=== PATIENT | male | born 1935 | race Caucasian/White ===

== ENCOUNTER 2017-05-04 19:21 | Emergency (ER) | payer OTHER, BC ==
[2017-05-04 19:30] VITALS: BP 193/110; TEMP 98.6
--- NOTE | 2017-05-04 20:02 | EDPHY ---
H & P Time Seen by Provider: 05/04/17 19:32 HPI/ROS: Chief complaint. Difficulty urinating HPI. 82-year-old male presents with difficulty urinating beginning this afternoon. Decreased urination. He feels like there is more to come. He then had spasms in his bladder and dribbling. He noted blood in his urine 2 weeks ago. He did not get it checked out after 4 days the urine cleared. No fever. He had similar symptoms 2 months prior to arrival. He also has a history of bladder polyps. No other complaints ROS Constitutional. no fever/chills, no weakness Eyes. no problems with vision ENT. no sore throat, no nasal drainage Cardiovascular. no chest pain Respiratory. no shortness of breath, no cough Abdominal. Full bladder sensation . Decreased ability to urinate. MS. no calf pain/swelling, no neck/back pain, no joint pain Skin. no rash Lymph. no swollen glands Neuro. no headache, no dizziness, no difficulty walking or with speech Past Medical/Surgical History: Bladder polyps, Social History: , nonsmoker, no alcohol Smoking Status: Former smoker Physical Exam: General Appearance: Alert well-developed male moderate distress vital signs show heart rate 114 an initial blood pressure 193/110 Eyes: Pupils equal and round no pallor or injection. ENT, Mouth: Mucous membranes are moist. Respiratory: There are no retractions, lungs are clear to auscultation. Cardiovascular: Regular rate and rhythm. Gastrointestinal: Suprapubic fullness and tenderness and patient says makes him feel like he needs to urinate when I palpate. Neurological: Awake and alert, sensory and motor exams grossly normal. Skin: Warm and dry, no rashes. Musculoskeletal: Neck is supple nontender. Extremities symmetrical, full range of motion. Psychiatric: Patient is oriented X 3, there is no agitation. Constitutional: Initial Vital Signs Temperature (C) 37.0 C 05/04/17 19:27 Heart Rate 114 H 05/04/17 19:27 Respiratory Rate 20 05/04/17 19:27 Blood Pressure 193/110 H 05/04/17 19:27 O2 Sat (%) 96 05/04/17 19:27 O2 Delivery Mode Room Air Allergies/Adverse Reactions: No Known Allergies Allergy (Verified 05/04/17 19:27) Home Medications: Medication Instructions Recorded Cephalexin [Keflex (*)] 500 mg PO TID #21 cap 05/04/17 Phenazopyridine HCl [Pyridium] 200 mg PO TID #6 tab 05/04/17 Medical Decision Making Procedures: Peridium And cephalexin in the emergency department. Urine is sent for culture and sensitivity ED Course/Re-evaluation: On serial evaluations Patient remained stable. He is able to void apparently completely. Residual bladder scan shows minimal residual urine. Patient has urinary tract infection and he and I discussed treatment plan including criteria for return importance of follow-up and further evaluation. He expresses understanding and agreement Differential Diagnosis: Had hematuria about a week or 10 days ago. He now has bladder spasms. Urinalysis indicates infection. He does not have evidence for sepsis. - Data Points Microbiology Results: MICROBIOLOGY 05/04/17 20:11 Urine,Clean Catch Urine Culture - Preliminary Two [place] Types Medications Given: Discontinued Medications Cephalexin (Keflex 500 Mg Prepack#4) 1 btl TAKEHOME EDNOW ONE PRN Reason: Protocol Stop: 05/04/17 21:10 Last Admin: 05/04/17 21:16 Dose: 1 btl Phenazopyridine HCl (Pyridium) 200 mg PO EDNOW ONE Stop: 05/04/17 21:12 Last Admin: 05/04/17 21:16 Dose: 200 mg Departure - Departure Disposition: Home, Routine, Self-Care Clinical Impression: Urinary tract infection Condition: Good Instructions: Cephalexin (By mouth), Phenazopyridine (By mouth) Additional Instructions: Drink plenty of fluids and stay hydrated. Cephalexin as antibiotic using 1 pill 3 times a day. Peridium to help with bladder spasm. Return for worsening pain, fever, vomiting. Recheck with Dr. Lozada in 2 days without fail. I will also give you the name of 2 other urologists. Referrals: Randy Lozada MD [Primary Care Provider] - 1-2 days without fail Luca Reynoso MD [Medical Doctor] - As per Instructions Elieser Reynolds MD [Medical Doctor] - As per Instructions Prescriptions: Cephalexin [Keflex (*)] 500 mg PO TID #21 cap Phenazopyridine HCl [Pyridium] 200 mg PO TID #6 tab
[2017-05-04] MEDS ORDERED: CEPHALEXIN 500MG PREPACK#4 BTL TAKEHOME ONE (21:09)
[2017-05-04] MEDS ORDERED: PHENAZOPYRIDINE HCL 200 MG TAB PO ONE (21:11)
[2017-05-04 21:57] VITALS: PULSE 112; RESP 18; O2SAT 95
== END 2017-05-04 21:58 | disposition home or self-care (01) ==
DX: N39.0 Urinary tract infection, site not specified (principal); B96.89 Other specified bacterial agents as the cause of diseases classified elsewhere; Z87.891 Personal history of nicotine dependence

== ENCOUNTER 2017-05-15 08:42 | Observation (INO) | payer OTHER ==
[2017-05-15] MEDS ORDERED: VANCOMYCIN PHARMACY TO DOSE MISC ONE (09:17)
--- NOTE | 2017-05-15 09:17 | PDHPUP ---
History & Physical Update H&P update statement: This history and physical update is based on an assessment of the patient which was completed after admission or registration (within 24 hours), but prior to the surgery/procedure. H&P update: H&P reviewed & patient examined, no change in patient's condition since H&P completed
[2017-05-15] MEDS ORDERED: LR 1,000 ML IV ONE (09:40)
[2017-05-15] MEDS ORDERED: VANCOMYCIN 1.5 GM in NS 250 ML IV ONE (10:00)
[2017-05-15] MEDS ORDERED: ALBUTEROL 3 ML DEYVIAL ONE (10:23)
[2017-05-15] MEDS ORDERED: MIDAZOLAM 2 MG/2 ML VIAL ONE ×2 (10:23→10:47)
[2017-05-15] MEDS ORDERED: ALBUMIN 5% 250 ML BOTTLE IV ONE (10:35)
[2017-05-15] MEDS ORDERED: LIDOCAINE 2% JELLY 20 ML (UROJECT) ONE (10:50)
[2017-05-15] MEDS ORDERED: fentaNYL 100 MCG/2 ML INJ IVP PRN (10:59)
[2017-05-15] MEDS ORDERED: ONDANSETRON 4 MG/2 ML VIAL IVP PRN ×2 (10:59→11:49)
[2017-05-15] MEDS ORDERED: LR 500 ML IV PRN (10:59)
[2017-05-15] MEDS ORDERED: NALOXONE HCL 0.4 MG/ML INJ IVP PRN (10:59)
[2017-05-15] MEDS ORDERED: ALBUTEROL 3 ML DEYVIAL IH PRN (10:59)
--- NOTE | 2017-05-15 10:59 | PDANEPAE ---
ANE Past Medical History - Cardiovascular History Hx Hypertension: No Hx Arrhythmias: No Hx Chest Pain: No Hx Coronary Artery / Peripheral Vascular Disease: Yes Hx CHF / Valvular Disease: No Hx Palpitations: No Cardiovascular History Comment: STENTS PLACED APPROX 1999. EDEMA LOWER EXTREMETIES. HYPERCHOLESTEROLEMIA - Pulmonary History Hx COPD: No Hx Asthma/Reactive Airway Disease: Yes Hx Recent Upper Respiratory Infection: No Hx Oxygen in Use at Home: Yes O2 in Use at Home (L/minute): 2 l Hx Sleep Apnea: Yes Sleep Apnea Screening Result - Last Documented: Positive Pulmonary History Comment: PADMINI -CPAP, O2. 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 HYPOTHYROID - Renal History Hx Renal Disorders: No Renal History Comment: 2 UNOBSTRUCTING KIDNEY STONES. 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 HX CATARACTS, LENSES NOW. OSTEOARTHRITIS - Chronic Pain History Chronic Pain: No - Surgical History Prior Surgeries: EGD X 3. COLONOSCOPY. CATARACT. STENT 1999 ANE Review of Systems Review of Systems: ANE Patient History - Allergies Allergies/Adverse Reactions: No Known Allergies Allergy (Verified 05/04/17 19:27) - Home Medications Home Medications: Allopurinol 300 MG (RX) 05/15/17 [Last Taken 05/14/17] Aspirin 81mg (*) 81 mg PO QID 05/15/17 [Last Taken 05/14/17] Avandia 05/15/17 [Last Taken 05/14/17] Chlorthalidone 50 mg PO DAILY 05/15/17 [Last Taken 05/14/17] Klor-Con 05/15/17 [Last Taken 05/14/17] Levothyroxine 75 mg 05/15/17 [Last Taken 05/14/17] Metformin 1000 mg 1,000 mg PO 05/15/17 [Last Taken 05/14/17] [place]-3 05/15/17 [Last Taken 05/14/17] Percocet 5-325 mg Tablet 05/15/17 [Last Taken 05/14/17] Protonix 40mg (*) 05/15/17 [Last Taken 05/01/17] Slo-Niacin 05/15/17 [Last Taken 05/14/17] Vitamin B Complex/Folic Acid 05/15/17 [Last Taken 05/14/17] Zetia 10 MG (*) 05/15/17 [Last Taken 05/14/17] - NPO status NPO Since - Liquids (Date): 05/14/17 NPO Since - Liquids (Time): 22:30 NPO Since - Solids (Date): 05/14/17 NPO Since - Solids (Time): 22:30 - Smoking Hx Smoking Status: Former smoker - Family Anes Hx Family Hx Anesthesia Complications: NONE ANE Labs/Vital Signs - Vital Signs Blood Pressure: 138/73 Heart Rate: 101 Respiratory Rate: 20 O2 Sat (%): 95 Height: 177.8 cm Weight: 102.058 kg ANE Physical Exam - Airway Neck exam: decreased ROM, increased neck circumference Mallampati Score: Class 2 Mouth exam: poor dentition, braden - Pulmonary Pulmonary: reduced air movement, expiratory wheeze, respiratory distress - Cardiovascular Cardiovascular: regular rate and rhythym, no murmur, rub, or gallop - ASA Status ASA Status: IV ANE Anesthesia Plan Anesthesia Plan: spinal
[2017-05-15] MEDS ORDERED: PROPOFOL 200 MG/20 ML VIAL ONE (11:26)
[2017-05-15] MEDS ORDERED: HYDROCODONE/APAP 5/325 TAB PO PRN (11:49)
[2017-05-15] MEDS ORDERED: OPIUM/BELLADONNA ALKALO SUPP PR PRN (11:49)
[2017-05-15] MEDS ORDERED: ZOLPIDEM TARTRATE 5 MG TAB PO PRN (11:49)
[2017-05-15] MEDS ORDERED: ACETAMINOPHEN 325 MG TAB PO PRN (11:49)
[2017-05-15] MEDS ORDERED: ONDANSETRON DISINTEGRATING 4 MG TAB PO PRN (11:49)
[2017-05-15] MEDS ORDERED: OXYCODONE/APAP 5/325 TAB PO PRN (11:49)
--- NOTE | 2017-05-15 11:54 | POSTOPPROG ---
Post Op Note Date of Operation: 05/15/17 Surgeon: Tramaine Pastor Anesthesiologist: Kendrick Anesthesia: Spinal Pre-op Diagnosis: bladder clot and tumor Procedure: evac clot, turbt Inf/Abcess present in the surg proc area at time of surgery?: No EBL: 50-100 Specimen(s): sent, dictated
[2017-05-15] MEDS ORDERED: D5W LR 1,000 ML IV SCH (12:00)
--- NOTE | 2017-05-15 12:13 | GOP ---
[f rep st] OPERATIVE REPORT DATE OF OPERATION: 05/15/2017 SURGEON: Tramaine Pastor MD PREOPERATIVE DIAGNOSIS: Large clot in the bladder and possible bladder cancer. POSTOPERATIVE DIAGNOSIS: Large clot in the bladder and possible bladder cancer. PROCEDURE PERFORMED: Evacuation of clots and transurethral resection of bladder tumor. FINDINGS: SPECIMENS: Obtained. DESCRIPTION OF PROCEDURE: The patient underwent spinal anesthesia, was prepped and draped in normal sterile fashion in the dorsal lithotomy position. The catheter removed and then after appropriate ti me-out, cystoscopy revealed a large bladder clot that was organized, so I visually got the clot out o f the bladder. Then, at that point, he had what appeared to be an inflammatory lesion of the bladder that was biopsied that looked inflammatory and then at the very dome of the bladder, he had 2 lesion s that were concerning for malignancy. The scope was not long enough to resect the lesions so with k ind of a bimanual palpation, I could get to the most distal lesion from the dome and gently go throug h and cauterize the base of it to where I could get the biopsy. Because of the position and the inad equacy of the length of the instrument to get to the top, I was not able to resect the 2nd lesion. I tried not to perforate the bladder and then after removal of the lesion, fulguration of the base of the lesion was done. The biopsy of the bladder area was cauterized and there was no significant blee ding after multiple levels of inspection. Once again, I had attempted to get to the upper most cepha lad lesion in the bladder. It was just not possible because of the inadequate length of the scope an d the inability to get his bladder down to the area for resection. At that point, a Uro-jet placed i n the urethra and a 3-way Hernandez catheter placed. It irrigated clear. He will be admitted for postop erative care and will send the specimen off for pathologic assessment with the biopsy: 1. The clot. 2. Then the TUR lesion. 3. There had been a request that the TUR lesion be sent to [facility] for a 2nd opinion. I am not sure there would be adequate specimen tissue for that, but will try to fulfill the patient's and fam jimmy's request. The options for this other lesion would be to do an open partial cystectomy excision of the lesion or attempt to get much longer instruments and attempt to resect the lesion. COMPLICATIONS: None. I will discuss the above findings with the family. /[id number]/MODL
--- NOTE | 2017-05-15 12:25 | POSTANESTH ---
Post Anesthetic Evaluation Cardiovascular Status: Normal, Stable, Similar to Pre-Op Cond Respiratory Status: Normal, Stable, Similar to Pre-op Cond. Level of Consciousness/Mental Status: Can Participate in Eval Pain Control: Adequate, Prn Tx Ordered Nausea/Vomiting Control: Adequate, Prn Tx Ordered Complications Possibly Related to Anesthesia: None Noted
[2017-05-16 04:56] LABS: PLATELET COUNT 192 10^3/uL (150-400)
[2017-05-16 08:39] VITALS: RESP 17
--- NOTE | 2017-05-16 08:41 | SOAPPROG ---
SOAP Progress Note Assessment/Plan: Assessment: Bladder cancer Acute POD 1, doing well, plan for dc Plan: DC ramos, DC home 05/16/17 08:40 Subjective: doing well Objective: Vital Signs Temp Pulse Resp BP Pulse Ox 36.8 C 80 18 127/94 H 93 05/16/17 04:14 05/16/17 04:14 05/16/17 04:14 05/16/17 04:14 05/16/17 04:14 Laboratory Results 05/16/17 04:39 05/16/17 04:39 05/15/17 05/16/17 05/17/17 05:59 05:59 05:59 Intake Total 1700 Output Total 200 1350 Balance 1500 -1350 Physical Exam - Physical Exam General Appearance: WD/WN Neck: supple Respiratory: No respiratory distress Abdomen: soft Back: No CVA tenderness Extremities: No calf tenderness Neuro/Psych: alert, oriented x 3 ICD10 Worksheet Patient Problems: Problems Problem Status Onset Bladder cancer Acute - ICD10 Problem Qualifiers (1) Bladder cancer Qualifiers: Bladder location: dome Qualified Code(s): 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
[2017-05-16] MEDS ORDERED: OXYCODONE/APAP 5/325 TAB PO PRN (09:08)
--- NOTE | 2017-05-16 09:09 | SOAPPROG ---
SOAP Progress Note Assessment/Plan: Assessment: Early exacerbation of COPD post op. Plan: Initiate antibiotics. Follow up mid week with me. 05/16/17 09:08 Subjective: Doing well post op. Feels increased pulmonary congestion. Objective: Vital Signs Temp Pulse Resp BP Pulse Ox 98.2 F 75 17 121/71 H 95 05/16/17 08:38 05/16/17 08:38 05/16/17 08:38 05/16/17 08:38 05/16/17 08:38 Laboratory Results 05/16/17 04:39 05/16/17 04:39 05/15/17 05/16/17 05/17/17 05:59 05:59 05:59 Intake Total 1700 Output Total 200 1350 Balance 1500 -1350 Lungs with diffuse rhonchi. COR RRR ICD10 Worksheet Patient Problems: Problems Problem Status Onset Bladder cancer Acute
[2017-05-16] MEDS ORDERED: CEFUROXIME AXETIL 250 MG TAB PO SCH (09:15)
[2017-05-16] MEDS ORDERED: ALBUTEROL 60 PUFFS/8 GM MDI IH SCH (09:15)
[2017-05-16] MEDS ORDERED: [UNRECOGNIZED DRUG - OTHER] PO SCH (09:15)
[2017-05-16] MEDS ORDERED: PANTOPRAZOLE SODIUM 40 MG TAB PO SCH (09:15)
[2017-05-16] MEDS ORDERED: ASPIRIN 81 MG CHEWABLE TAB PO SCH (09:15)
[2017-05-16] MEDS ORDERED: POTASSIUM CL 20 MEQ TAB PO SCH (09:15)
[2017-05-16] MEDS ORDERED: ALLOPURINOL 100 MG TAB PO SCH (09:15)
[2017-05-16] MEDS ORDERED: LEVOTHYROXINE 75 MCG TAB PO SCH (09:15)
[2017-05-16] MEDS ORDERED: OMEGA-3 FATTY ACIDS 1,000 MG CAP PO SCH (09:15)
[2017-05-16] MEDS ORDERED: CHOLECALCIFEROL VIT D3 1,000 UNITS TAB PO SCH (09:15)
[2017-05-16 11:32] VITALS: BP 115/68; PULSE 77; TEMP 97.7; O2SAT 93
[2017-05-16] MEDS ORDERED: NIACIN 250 MG PO SCH (21:00)
[2017-05-16] MEDS ORDERED: ATORVASTATIN CALCIUM 10 MG TAB PO SCH (21:00)
[2017-05-17] MEDS ORDERED: HYDROCHLOROTHIAZIDE 50 MG TAB PO SCH (09:00)
[2017-05-17] MEDS ORDERED: FERROUS SULFATE 325 MG TAB PO SCH (09:00)
[2017-05-17] MEDS ORDERED: FOLIC ACID 1 MG TAB PO SCH (09:00)
[2017-05-17] MEDS ORDERED: CYANO/VITAMIN B12 1000 MCG TAB PO SCH (09:00)
[2017-05-17] MEDS ORDERED: EZETIMIBE 10 MG TAB PO SCH (09:00)
[2017-05-17] MEDS ORDERED: NON-FORMULARY NEW DRUG (Metformin Hcl [Metformin Hcl Er] 1,000 MG) PO SCH (09:00)
[2017-05-17] MEDS ORDERED: metFORMIN SR 500 MG TAB PO SCH (09:00)
--- NOTE | 2017-05-20 12:24 | GDS ---
[f rep st] DISCHARGE SUMMARY ADMISSION DIAGNOSIS: Bladder cancer. DISCHARGE DIAGNOSIS: Bladder cancer. PROCEDURE DURING HOSPITALIZATION: TUR of bladder tumor. HOSPITAL COURSE: This gentleman had a procedure done where I could resect only part of the tumor bec ause of the position in the bladder and not able to get to the dome of the bladder adequately. He sotomayor d a catheter placed overnight and discharged home, voiding well, to have follow up in the office. 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 /[id number]/MODL
== END 2017-05-16 13:22 | disposition home or self-care (01) ==
LOC: F3N 08:42 → F1N 15:23
PROVIDERS: ADMIT Specialist; ATTEND Specialist
PROC: 0TBB8ZX Excision of Bladder, Via Natural or Artificial Opening Endoscopic, Diagnostic (ICD-10-PCS; principal; 2017-05-15 10:00)
PROC: 0T9B8ZZ Drainage of Bladder, Via Natural or Artificial Opening Endoscopic (ICD-10-PCS; principal; 2017-05-15 10:00)
PROC: 0TBB8ZZ Excision of Bladder, Via Natural or Artificial Opening Endoscopic (ICD-10-PCS; principal; 2017-05-15 10:00)
PROC: 0T5B8ZZ Destruction of Bladder, Via Natural or Artificial Opening Endoscopic (ICD-10-PCS; principal; 2017-05-15 10:00)
DX: C67.9 Malignant neoplasm of bladder, unspecified (principal); N32.89 Other specified disorders of bladder; R31.0 Gross hematuria; R33.9 Retention of urine, unspecified; R35.1 Nocturia; J44.9 Chronic obstructive pulmonary disease, unspecified; E78.5 Hyperlipidemia, unspecified; G47.33 Obstructive sleep apnea (adult) (pediatric); E11.9 Type 2 diabetes mellitus without complications; E03.9 Hypothyroidism, unspecified; Z79.82 Long term (current) use of aspirin; Z87.891 Personal history of nicotine dependence; Z87.442 Personal history of urinary calculi; Z86.73 Personal history of transient ischemic attack (TIA), and cerebral infarction without residual deficits; Z95.5 Presence of coronary angioplasty implant and graft
CPT/HCPCS: 52001; 52204; 52234; J2250; J3370; J7613; P9041; J2704